=== PATIENT | female | born 1985 | race Caucasian/White ===

== ENCOUNTER → 2018-11-09 | Outpatient (CLI) | payer OTHER | LOC: M.RAD 10-21 07:00 | DX: R92.8 Other abnormal and inconclusive findings on diagnostic imaging of breast (principal); Z80.3 Family history of malignant neoplasm of breast; Z85.42 Personal history of malignant neoplasm of other parts of uterus; Z85.43 Personal history of malignant neoplasm of ovary ==

== ENCOUNTER → 2018-11-19 | Outpatient (CLI) | payer OTHER | LOC: M.RAD 15:35 | DX: R92.1 Mammographic calcification found on diagnostic imaging of breast (principal) ==